=== PATIENT | male | born 1965 | race Two or more races ===

== ENCOUNTER 2024-09-22 16:16 | Inpatient (IN) | payer MEDICAID ==
[~2024-09-22] VITALS: Ht 177.8 cm; Wt 61.0 kg
[~2024-09-22 16:16] MED LIST: HUM10VIA6 SQ; INSU100V64 SQ; LANTUS SQ
[2024-09-22 16:40] LABS: BASOPHILS % (AUTO) 0.7 % (0-1); EOSINOPHILS # (AUTO) 0.1 X10'3 (0-0.9); HEMATOCRIT 39.9 % (42.0-52.0); HEMOGLOBIN 13.1 g/dl (14.0-17.9); LYMPHOCYTES # (AUTO) 0.6 X10'3 (1.1-4.8); LYMPHOCYTES % (AUTO) 9.1 % (21-51); MEAN CORPUSCULAR HEMOGLOBIN 28.7 PG (27.0-31.0); MEAN CORPUSCULAR HGB CONC 32.9 g/dL (33.0-36.5); MEAN CORPUSCULAR VOLUME 87.4 FL (78-98); MEAN PLATELET VOLUME 7.9 FL (7.4-10.4); MONOCYTES # (AUTO) 0.5 X10'3 (0-0.9); MONOCYTES % (AUTO) 7.8 % (2-12); NEUTROPHILS # (AUTO) 5.2 X10'3 (1.8-7.7); NEUTROPHILS % (AUTO) 81.4 % (42-75); PLATELET COUNT 76 X10'3 (140-440); RED BLOOD COUNT 4.57 X10'6 (4.70-6.10); RED CELL DISTRIBUTION WIDTH 17.2 % (11.5-14.5); WHITE BLOOD COUNT 6.4 X10'3 (4.5-11.0)
[2024-09-22 16:57] LABS: ALANINE AMINOTRANSFERASE 37 U/L (12-78); ALBUMIN 3.4 G/DL (3.4-5.0); ALBUMIN/GLOBULIN RATIO 0.8 (1.1-1.5); ALKALINE PHOSPHATASE 133 IU/L (46-116); ANION GAP 11 (8-16); ASPARTATE AMINO TRANSFERASE 26 U/L (10-37); BILIRUBIN,TOTAL 0.6 MG/DL (0.1-1.0); BLOOD UREA NITROGEN 34 MG/DL (7-18); BUN/CREATININE RATIO 6.7 (10.0-20.0); CALCIUM 8.7 MG/DL (8.5-10.1); CHLORIDE 94 MMOL/L (99-107); CREATININE 5.11 MG/DL (0.60-1.10); GLUCOSE 173 MG/DL (70-104); MAGNESIUM 2.2 MG/DL (1.5-2.4); PHOSPHORUS 3.4 MG/DL (2.3-4.5); POTASSIUM 3.4 MMOL/L (3.5-5.1); SODIUM 137 MMOL/L (135-145); TOTAL CARBON DIOXIDE 31.6 MMOL/L (24-32); TOTAL PROTEIN 7.7 G/DL (6.4-8.2); eCRCL 15 ML/MIN; eGFR 12 ML/MIN
[2024-09-22] MEDS: labetalol 20mg/4ml (5mg/ml) syringe IV ONE (18:10)
[2024-09-22 19:59] LABS: ETHANOL < 10 MG/DL (<10)
[2024-09-22 20:09] LABS: ABG BASE EXCESS 4.3 mmol/L (-2.0-3.0); ABG HCO3 27.8 mmol/L (21.0-28.0); ABG OXYGEN SATURATION 92.4 % (94.0-98.0); ABG PCO2 (T) 36.9 mmHg (35.0-48.0); ABG PH (T) 7.494 (7.350-7.450); ALLEN'S TEST POSITIVE; FCOHb 0.4 % (0.5-1.5); FHHb 7.5 % (0.0-5.0); FLOW 3 L/min; FMetHb 0.3 % (0.0-1.5); FO2Hb 91.8 % (94.0-98.0); MODE NASAL CANNULA; PATIENT TEMPERATURE 36.5; TOTAL HEMOGLOBIN 13.4 G/dl (13.5-17.5)
[2024-09-22] MEDS ORDERED: HYDR50TA46 PO (20:49)
[2024-09-22] MEDS ORDERED: METO-395 PO (20:49)
[2024-09-22] MEDS ORDERED: ESCI5TAB17 PO (20:49)
[2024-09-22] MEDS ORDERED: PHEN32.46 PO (20:49)
[2024-09-22] MEDS ORDERED: ATOR40TA72 PO (20:49)
[2024-09-22] MEDS ORDERED: NIFE90TA70 PO (20:49)
[2024-09-22] MEDS ORDERED: PHO667C PO (20:49)
[2024-09-22] MEDS ORDERED: CLON-330 PO (20:49)
[2024-09-22] MEDS: CefTRIAXone 2gm/D5W 50ml BAG 50 ML IV ONE (21:12)
[2024-09-22] MEDS ORDERED: potassium Cl 20 mEq SR tablet PO PRN ×2 (22:25)
[2024-09-22] MEDS ORDERED: magnesium Cl slow-release 64mg tablet PO PRN (22:25)
[2024-09-22] MEDS ORDERED: HYDROcodone/acetaminophen 5mg/325mg tablet PO PRN (22:25)
[2024-09-22] MEDS ORDERED: magnesium sulf-water 2g/50mL 50 ML IV PRN (22:25)
[2024-09-22] MEDS ORDERED: magnesium sulf-water 4G/100mL 100 ML IV PRN (22:25)
[2024-09-22] MEDS ORDERED: potassium Cl 40MEQ/1/2NS 520ml 520 ML IV PRN (22:25)
[2024-09-22] MEDS ORDERED: acetaminophen 325mg tablet PO PRN (22:25)
[2024-09-22] MEDS ORDERED: ipratropium/albuterol 3ml nebule NEB PRN (22:30)
[2024-09-22 22:59] LABS: HEMOGLOBIN A1C > 12.0 % (4.5-6.2)
[2024-09-22 23:25] LABS: PRO BRAIN NATRIURETIC PEPTIDE > 30000 PG/ML (0-125)
[2024-09-22 23:43] LABS: APTT 29 SECONDS (22-32); INR 1.1 INR
[2024-09-23] VITALS (18 sets, daily range): BP systolic 133–178; BP diastolic 70–88; PULSE 50–79; RESP 12–20; TEMP 97.3–98.1; O2SAT 94–100
[2024-09-23] MEDS: methylPREDNISolone sod succ/PF 40mg inj. IV SCH (00:57)
[2024-09-23] MEDS ORDERED: dextrose 50%-water 50ml dispensing syringe IV PRN ×2 (01:35)
[2024-09-23] MEDS ORDERED: glucagon, human recombinant 1mg kit SUBCUT PRN (01:35)
[2024-09-23] MEDS ORDERED: DEXTROSE 15 GM of carb/4 tabs (each vial/BOTTLE has 4 tablets) PO PRN ×2 (01:35)
[2024-09-23 02:11] LABS: BASOPHILS % (AUTO) 0.3 % (0-1); EOSINOPHILS % (AUTO) 0.1 % (0-6); HEMATOCRIT 41.8 % (42.0-52.0); HEMOGLOBIN 13.5 g/dl (14.0-17.9); LYMPHOCYTES # (AUTO) 0.5 X10'3 (1.1-4.8); LYMPHOCYTES % (AUTO) 6.4 % (21-51); MEAN CORPUSCULAR HEMOGLOBIN 28.6 PG (27.0-31.0); MEAN CORPUSCULAR HGB CONC 32.4 g/dL (33.0-36.5); MEAN CORPUSCULAR VOLUME 88.5 FL (78-98); MONOCYTES # (AUTO) 0.8 X10'3 (0-0.9); MONOCYTES % (AUTO) 9.7 % (2-12); NEUTROPHILS # (AUTO) 7.1 X10'3 (1.8-7.7); NEUTROPHILS % (AUTO) 83.5 % (42-75); PLATELET COUNT 73 X10'3 (140-440); RED BLOOD COUNT 4.72 X10'6 (4.70-6.10); RED CELL DISTRIBUTION WIDTH 17.3 % (11.5-14.5); WHITE BLOOD COUNT 8.5 X10'3 (4.5-11.0)
[2024-09-23 02:33] LABS: ALANINE AMINOTRANSFERASE 37 U/L (12-78); ALBUMIN 3.3 G/DL (3.4-5.0); ALBUMIN/GLOBULIN RATIO 0.7 (1.1-1.5); ALKALINE PHOSPHATASE 126 IU/L (46-116); ANION GAP 15 (8-16); ASPARTATE AMINO TRANSFERASE 29 U/L (10-37); BILIRUBIN,TOTAL 0.6 MG/DL (0.1-1.0); BLOOD UREA NITROGEN 43 MG/DL (7-18); BUN/CREATININE RATIO 6.1 (10.0-20.0); CALCIUM 8.5 MG/DL (8.5-10.1); CHLORIDE 91 MMOL/L (99-107); CREATININE 7.06 MG/DL (0.60-1.10); GLUCOSE 327 MG/DL (70-104); MAGNESIUM 2.3 MG/DL (1.5-2.4); PHOSPHORUS 6.3 MG/DL (2.3-4.5); POTASSIUM 4.5 MMOL/L (3.5-5.1); SODIUM 135 MMOL/L (135-145); TOTAL CARBON DIOXIDE 28.8 MMOL/L (24-32); TOTAL PROTEIN 7.8 G/DL (6.4-8.2); eCRCL 11 ML/MIN; eGFR 8 ML/MIN
[2024-09-23] MEDS: heparin, porcine 5000 units/ml vial SQ SCH (08:00)
[2024-09-23] MEDS: CefTRIAXone/D5W-Rocephin 1gm 50 ML IV SCH (08:00)
[2024-09-23] MEDS: K and/or MAG REPLACEMENT MC SCH (08:00)
[2024-09-23] MEDS: NIFEdipine XL 30mg tablet PO SCH (08:00)
[2024-09-23] MEDS: HYDROcodone/acetaminophen 10/325mg tab PO PRN (08:13)
[2024-09-23] MEDS: mag hydrox/Alum hydrox/simeth 30ml oral suspension PO PRN (08:17)
[2024-09-23] MEDS: albuterol 2.5 MG/3 ML nebule NEB PRN (08:58)
[2024-09-23] MEDS: INSULIN LISPRO 100 UNIT/ML INSULN.PEN MULTI-DOSE SQ SCH ×2 (09:00→10:40)
[2024-09-23] MEDS ORDERED: HYDROmorphone inj. 0.5 MG/0.5 ML DISP.SYRIN IV PRN (14:35)
[2024-09-23] MEDS: atorvastatin 20mg tablet PO SCH (15:15)
[2024-09-23] MEDS: ESCITALOPRAM 10 mg tablet 10 MG TABLET PO SCH (15:15)
[2024-09-23] MEDS: metoprolol succinate 25mg (24-HOUR) SR. Tablet PO SCH (15:15)
[2024-09-23] MEDS: azithromycin/NS 500mg/250ml 250 ML IV SCH (15:15)
[2024-09-23] MEDS: ondansetron/PF 4mg/2ml inj IV PRN (16:02)
[2024-09-23] MEDS: loperamide 2mg capsule PO PRN (17:13)
[2024-09-23] MEDS: cloNIDine 0.1 mg tablet PO SCH (20:54)
[2024-09-23] MEDS: hydrALAZINE 25 MG tablet PO SCH (20:55)
[2024-09-23] MEDS: insulin glargine (Lantus) pen - multi-dose SQ SCH (21:11)
[2024-09-24] VITALS (17 sets, daily range): BP systolic 94–157; BP diastolic 54–85; PULSE 56–84; RESP 13–18; TEMP 97.3–97.9; O2SAT 93–100
[2024-09-24 06:40] LABS: ALANINE AMINOTRANSFERASE 29 U/L (12-78); ALBUMIN/GLOBULIN RATIO 0.6 (1.1-1.5); ALKALINE PHOSPHATASE 114 IU/L (46-116); ANION GAP 13 (8-16); ASPARTATE AMINO TRANSFERASE 18 U/L (10-37); BILIRUBIN,TOTAL 0.5 MG/DL (0.1-1.0); BLOOD UREA NITROGEN 46 MG/DL (7-18); BUN/CREATININE RATIO 7.7 (10.0-20.0); CALCIUM 9.3 MG/DL (8.5-10.1); CHLORIDE 100 MMOL/L (99-107); CREATININE 5.98 MG/DL (0.60-1.10); GLUCOSE 260 MG/DL (70-104); MAGNESIUM 2.8 MG/DL (1.5-2.4); PHOSPHORUS 6.4 MG/DL (2.3-4.5); POTASSIUM 5.6 MMOL/L (3.5-5.1); SODIUM 140 MMOL/L (135-145); TOTAL CARBON DIOXIDE 26.9 MMOL/L (24-32); eCRCL 12 ML/MIN; eGFR 10 ML/MIN
[2024-09-24 06:46] LABS: BASOPHILS % (AUTO) 0.1 % (0-1); EOSINOPHILS % (AUTO) 0 % (0-6); HEMATOCRIT 46.5 % (42.0-52.0); HEMOGLOBIN 15.3 g/dl (14.0-17.9); LYMPHOCYTES # (AUTO) 0.5 X10'3 (1.1-4.8); LYMPHOCYTES % (AUTO) 5.7 % (21-51); MEAN CORPUSCULAR HEMOGLOBIN 29.1 PG (27.0-31.0); MEAN CORPUSCULAR HGB CONC 32.9 g/dL (33.0-36.5); MEAN CORPUSCULAR VOLUME 88.4 FL (78-98); MEAN PLATELET VOLUME 8.7 FL (7.4-10.4); MONOCYTES # (AUTO) 0.3 X10'3 (0-0.9); MONOCYTES % (AUTO) 3.8 % (2-12); NEUTROPHILS # (AUTO) 7.7 X10'3 (1.8-7.7); NEUTROPHILS % (AUTO) 90.4 % (42-75); PLATELET COUNT 102 X10'3 (140-440); RED BLOOD COUNT 5.26 X10'6 (4.70-6.10); RED CELL DISTRIBUTION WIDTH 17.5 % (11.5-14.5); WHITE BLOOD COUNT 8.6 X10'3 (4.5-11.0)
[2024-09-24] MEDS ORDERED: normal saline 1000ml 100 ML IV PRN (08:00)
[2024-09-24] MEDS: EPOETIN ALFA-EPBX 20,000 UNIT/ML 1 ML MDV IV ONE (08:00)
[2024-09-24] MEDS: lactobacillus rhamnosus 10,000 MMU CELLS/CAPSULE PO SCH (08:13)
[2024-09-24 09:13] LABS: HBSAG SCREEN Negative (Negative); HEP B SURF AB Reactive (.)
[2024-09-24] MEDS: acetaminophen 325mg tablet PO PRN (17:59)
[2024-09-24] MEDS: NUT.TX.IMP.RENAL FXN,LAC-REDUC (Nepro) 237 ML VANILLA PO SCH (18:00)
[2024-09-24] MEDS: HYDROmorphone/PF 0.2 MG/ML SYRINGE IV PRN (20:05)
[2024-09-24] MEDS: diphenhydrAMINE 25mg capsule PO PRN (22:56)
[2024-09-24] MEDS: HYDROcodone/acetaminophen 5mg/325mg tablet PO PRN (23:05)
[2024-09-25] VITALS (7 sets, daily range): BP systolic 101–123; BP diastolic 60–75; PULSE 62–76; RESP 14–16; TEMP 97.3–97.7; O2SAT 90–94
[2024-09-25 06:33] LABS: BASOPHILS % (AUTO) 0.1 % (0-1); EOSINOPHILS % (AUTO) 0 % (0-6); HEMATOCRIT 43.6 % (42.0-52.0); HEMOGLOBIN 14.3 g/dl (14.0-17.9); LYMPHOCYTES # (AUTO) 0.6 X10'3 (1.1-4.8); LYMPHOCYTES % (AUTO) 7.5 % (21-51); MEAN CORPUSCULAR HEMOGLOBIN 28.9 PG (27.0-31.0); MEAN CORPUSCULAR HGB CONC 32.9 g/dL (33.0-36.5); MEAN CORPUSCULAR VOLUME 87.8 FL (78-98); MEAN PLATELET VOLUME 8.1 FL (7.4-10.4); MONOCYTES # (AUTO) 0.5 X10'3 (0-0.9); MONOCYTES % (AUTO) 5.5 % (2-12); NEUTROPHILS # (AUTO) 7.5 X10'3 (1.8-7.7); NEUTROPHILS % (AUTO) 86.9 % (42-75); PLATELET COUNT 122 X10'3 (140-440); RED BLOOD COUNT 4.97 X10'6 (4.70-6.10); WHITE BLOOD COUNT 8.7 X10'3 (4.5-11.0)
[2024-09-25 06:58] LABS: ALANINE AMINOTRANSFERASE 20 U/L (12-78); ALBUMIN 2.8 G/DL (3.4-5.0); ALBUMIN/GLOBULIN RATIO 0.6 (1.1-1.5); ALKALINE PHOSPHATASE 112 IU/L (46-116); ANION GAP 12 (8-16); ASPARTATE AMINO TRANSFERASE 16 U/L (10-37); BILIRUBIN,TOTAL 0.4 MG/DL (0.1-1.0); BLOOD UREA NITROGEN 46 MG/DL (7-18); BUN/CREATININE RATIO 9.2 (10.0-20.0); CALCIUM 8.7 MG/DL (8.5-10.1); CHLORIDE 95 MMOL/L (99-107); CREATININE 4.98 MG/DL (0.60-1.10); GLUCOSE 392 MG/DL (70-104); MAGNESIUM 2.5 MG/DL (1.5-2.4); PHOSPHORUS 5.6 MG/DL (2.3-4.5); POTASSIUM 4.8 MMOL/L (3.5-5.1); SODIUM 135 MMOL/L (135-145); TOTAL CARBON DIOXIDE 28.3 MMOL/L (24-32); TOTAL PROTEIN 7.2 G/DL (6.4-8.2); eCRCL 14 ML/MIN; eGFR 12 ML/MIN
[2024-09-25] MEDS ORDERED: normal saline 1000ml 100 ML IV PRN (08:00)
[2024-09-25] MEDS ORDERED: ESCI5TAB17 PO (10:36)
[2024-09-25] MEDS ORDERED: CEFD300C3 PO (10:36)
== END 2024-09-25 14:31 | disposition home or self-care (01) | DRG 425 ==
LOC: ER 16:17 → ED HOLD 21:03 → PCU 3S 09-23 04:30
PROVIDERS: ADMIT Internal Medicine; ATTEND Internal Medicine
PROC: 5A1D70Z Performance of Urinary Filtration, Intermittent, Less than 6 Hours Per Day (ICD-10-PCS; principal; 2024-09-23)
PROC: 5A1D70Z Performance of Urinary Filtration, Intermittent, Less than 6 Hours Per Day (ICD-10-PCS; 2024-09-24)
DX: E87.70 Fluid overload, unspecified (principal); J96.01 Acute respiratory failure with hypoxia; G93.41 Metabolic encephalopathy; I67.4 Hypertensive encephalopathy; D69.6 Thrombocytopenia, unspecified; E87.4 Mixed disorder of acid-base balance; J18.9 Pneumonia, unspecified organism; E83.39 Other disorders of phosphorus metabolism; Z20.822 Contact with and (suspected) exposure to COVID-19; D63.1 Anemia in chronic kidney disease; J21.9 Acute bronchiolitis, unspecified; E87.1 Hypo-osmolality and hyponatremia; I16.1 Hypertensive emergency; E87.5 Hyperkalemia; I12.0 Hypertensive chronic kidney disease with stage 5 chronic kidney disease or end stage renal disease; N18.6 End stage renal disease; E11.22 Type 2 diabetes mellitus with diabetic chronic kidney disease; F31.9 Bipolar disorder, unspecified; F41.9 Anxiety disorder, unspecified; G89.29 Other chronic pain; M54.9 Dorsalgia, unspecified; F17.210 Nicotine dependence, cigarettes, uncomplicated; E11.65 Type 2 diabetes mellitus with hyperglycemia; I95.9 Hypotension, unspecified; Z90.49 Acquired absence of other specified parts of digestive tract; Z99.2 Dependence on renal dialysis; Z91.158 Patient's noncompliance with renal dialysis for other reason
CPT/HCPCS: 36415; 36600; 70450; 71045; 71250; 74176; 80053; 80320; 82803; 82948; 83036; 83605; 83735; 83880; 84100; 84145; 85018; 85025; 85610; 85730; 86706; 87040; 87081; 87340; 87502; 87503; 87811; 93005; 94640; 94760; 96365; 96375; 97110; 97116; 97162; 97530; 99285; A4615; A6212; A6449; E1594; G0257; G0378; J0456; J0696; J1171; J1644; J1815; J2405; J2919; J3490; J7030; J7040; Q0163

== ENCOUNTER 2024-11-27 15:07 | Emergency (ER) | payer MEDICAID ==
[~2024-11-27] VITALS: Ht 177.8 cm; Wt 69.5 kg
[~2024-11-27 15:07] MED LIST changes: +ATOR40TA72 PO; +CLON-330 PO; +ESCI5TAB17 PO; +HYDR50TA46 PO; +METO-395 PO; +NIFE90TA70 PO; +PHEN32.46 PO; +PHO667C PO
--- NOTE | 2024-11-27 15:26 | Physician Documentation ---
History of Present Illness ~ Chief Complaint: Knee Pain Stated Complaint: FALL HURT RIGHT KNEE Time Seen by MD: 17:45 Primary Medical Doctor: QUENTIN AZEVEDO 59-year-old male presents to the ED with a complaint of right knee pain. [place] and injured his right knee. States unable to bear weight and has pain with range of motion at this time. This is though his knee has not swollen. Patient additionally reports mild right posterior shoulder pain and left knee pain. Denies having head strikes Day of Onset: Nov 27, 2024 Tetanus witin 5 years: Yes Medication Reconciliation Allergies: Coded Allergies: No Known Allergies (Unverified , 09/22/24) Scheduled Atorvastatin Calcium (Atorvastatin Calcium), 1 TAB PO DAILY, (Reported) Clonidine HCl (Clonidine HCl), 1 TAB PO BID, (Reported) Escitalopram Oxalate (Escitalopram Oxalate), 10 MG PO DAILY Hum Insulin Nph/Reg Insulin Hm (Humulin 70-30 Vial), 20 UNIT SQ HS, (Reported) Hydralazine HCl (Hydralazine HCl), 2 TAB PO BID, (Reported) Insulin Glargine,Hum.rec.anlog* (Lantus*), 20 UNITS SQ BID, (Reported) Insulin Regular, Human* (Humulin R 3 Ml *), 15 UNITS SQ BID Metoprolol Succinate (Metoprolol Succinate), 1 TAB PO DAILY, (Reported) Naloxone HCl (Narcan), 1 SPRAYS BOTHNARES ONCE Nifedipine (Nifedipine ER), 1 TAB PO DAILY, (Reported) Phenobarbital (Phenobarbital), 1 TAB PO QAM, (Reported) Scheduled PRN Hydrocodone Bit/Acetaminophen 5/325 MG (Lakeside 5/325 MG), 1 TAB PO Q6H PRN for pain Miscellaneous Medications Calcium Acetate (Calcium Acetate), 1 CAP PO, (Reported) Past Medical History Past Medical History: Seizures, Diabetes, Chronic Back Pain, Anxiety, Bipolar, Depression Past Surgical History: cholecystectomy Patient History: FH: diabetes mellitus FATHER Alcohol Use: Occasionally Drug Use: none Review of Systems ROS Bilateral knee pain and right shoulder pain as stated above in the HPI, otherwise all systems are reviewed and negative. Physical Exam Vital Signs: Temperature: 97.1, Source: Temporal, Heart Rate: 52, Respiratory Rate: 15, BP: 156/66, Pulse Oximetry: 99, Weight: 69.550 Physical Exam VITALS: Reviewed and as above. GENERAL: Alert, nontoxic appearing, no apparent distress. HEENT: Atraumatic RESPIRATORY: No increased work of breathing, no respiratory distress, speaking in full clear sentences MUSCULOSKELETAL: Anterior aspects of bilateral knees are tender to palpation with right being more tender than left, no swelling, no deformity, no patellar ballottement, joint lines bilaterally are nontender to palpation. Mild tenderness to palpation of right posterior shoulder without deformity. Pedal pulse and sensation intact distal to injury. SKIN: Area of faint ecchymosis to posterior right knee otherwise no ecchymosis to left knee, bilateral shoulders, or bilateral hands Progress Results/Orders Results/Orders Completed Orders - DIOR COLE [employer] APPRENTICE Hydrocodone/Apap 10/325 (Lakeside 10/325mg (11/27/24 18:30) Clonidine Tablet (Catapres Tablet) (11/27/24 18:55) Medications Received in ER Medications (Trade) Dose Ordered Sig/Juan C Route PRN Reason Start Time Stop Time Status Last Admin Dose Admin (Lakeside 10/325mg tab) 1 tab ONCE ONCE PO 11/27/24 18:30 11/27/24 18:31 DC 11/27/24 18:38 1 TAB (Catapres tablet) 0.1 mg ONCE ONCE PO 11/27/24 18:55 11/27/24 18:58 DC 11/27/24 19:17 0.1 MG Vital Signs 11/27/24 11/27/24 11/27/24 11/27/24 15:21 16:51 17:39 17:53 Temp 97.1 98.2 98.2 Pulse 52 85 61 Resp 15 16 16 18 B/P (MAP) 156/66 157/79 (105) 187/85 (119) Pulse Ox 99 99 100 11/27/24 11/27/24 11/27/24 18:39 19:44 20:00 Temp 98.2 98.2 98.2 Pulse 65 64 Resp 18 B/P (MAP) 183/87 (119) Pulse Ox 100 100 O2 Flow Rate 0 0 EKG/XRAY/CT/US/VASC/MRI Bone/Soft Tissue X-Ray (Ext.) : Additional Comment DI KNEE, COMP 4 VW MIN, INDICATION: KNEE PAIN TECHNICAL DATA: Frontal , oblique and lateral views were obtained of the right knee. COMPARISON: None FINDINGS: No fracture is identified. Medial, lateral and patellofemoral compartment joint spaces are maintained. Alignment is anatomic. Soft tissues are within normal limits. No joint effusion is demonstrated. IMPRESSION: No acute fracture or dislocation of the right knee. Electronically Signed by:MITESH MONGE MD Date & Time: 11/27/241601 Dictated by: MITESH MONGE MD Dictation date and time: 11/27/24 1602 I have reviewed and agree with the radiology report. I have reviewed and interpreted the imaging as: No fracture or dislocation Medical Decision Making Findings This 59-year-old male presented with pain to his bilateral knees worse in the right knee after a mechanical ground level trip and fall striking both knees, physical exam did not demonstrate evidence of significant injury including no swelling, ecchymosis, erythema or deformity and x-ray did not demonstrate evidence of fracture or dislocation. Limb was neurovascularly intact distal to the injury. I suspect pain is from soft tissue contusion. Patient was offered admission for pain management though declined and with shared decision-making he will be discharged home. Patient's pain was managed in the emergency department he was able to ambulate utilizing a walker, patient additionally ambulates with a walker at home and has a wheelchair he is able to use if needed. Patient reports he has good follow up with primary care provider who he will schedule an appointment with in the next 2-3 days. I discussed the plan with the patient who agrees and careful return to care and home care instructions were provided which he verbalized understanding of. Patient is otherwise well-appearing and remainder of physical exam benign. Patient was found to be quite hypertensive during ED visit the patient reports no symptoms related to hypertension, patient reports he did not take his daily hypertension medicine and I believe combination of his seems dose of antihypertensive and pain his responsible for this episode of significant hyper tension. Patient received his normal dose of hypertensive medication in the department with noticeable response prior to discharge. I have discussed with the patient the risks of addiction and overdose associated with use of opioids, including the increased risk of addiction to an opioid for an individual who is suffering from both mental and substance abuse disorders. I have discussed with the patient the danger of taking an opioid with a benzodiazepine, alcohol, or another central nervous system depressant. Knee Diff Dx:Considerations: Include: Abrasion, Contusion, DJD, Fracture-femur, Fracture-fibula, Fracture-patella, Fracture-tibia, Gout, Hematoma, Laceration, Meniscus injury, Neurovascular injury, Sprain Additional Comment I additionally considered hypertensive emergency Departure Disposition: 01 HOME / SELF CARE / HOMELESS Impression: Primary Impression: Knee pain Qualified Codes: M25.561 - Pain in right knee Condition: Improved Discharge Instructions: Acute Knee Pain, Adult, RICE Therapy for Routine Care of Injuries, [id number] Additional Instructions: Please take the medications as prescribed. Please use the walker to help rest your knee. Please follow up with your primary care provider in the next few days for re-evaluation and further pain management. Please return to the emergency department for any new or worsening concerning symptoms. You may use [id number] ibuprofen and or Tylenol as needed for pain as directed by the [id number]-[id number] packaging. For breakthrough pain you may use the prescribed Lakeside, be aware that the Lakeside also contains the same active ingredient as Tylenol, so do not take more than the recommended amount of Tylenol as directed on the [id number]-ipjzeic packaging. You have been prescribed an opioid medication, there are risks of addiction and overdose associated with the use of opioids. The risk of addiction to an opioid for increases for those suffering both from mental health and substance use disorders. The use of an opioid while taking other central nervous system depressants including but not limited to benzodiazepines or alcohol, or other opioids increases the risk of serious side effects that can include overdose or respiratory depression that can lead to serious injury or . I have also prescribed you Narcan which is a medication that can help reverse opioid overdose. Referrals: NO PRIMARY CARE PROVIDER (PCP) Prescriptions Naloxone HCl (Narcan) 4 Mg/Actuation [place] 1 SPRAYS BOTHNARES ONCE for 1 Day, #1 EA 0 Refills Prov: DIOR COLE 11/27/24 Hydrocodone Bit/Acetaminophen 5/325 MG (Lakeside 5/325 MG) 5 Mg/325 Mg Tablet 1 TAB PO Q6H PRN for pain for 3 Days, #12 TAB Prov: DIOR COLE 11/27/24 Education Educated: Patient Educated regarding: diagnosis, treatment, prognosis Signature Scribe Signature: No scribe Attestation: The note accurately reflects work and decisions made by me.EMANUEL Palencia 11/27/24 20:17 GABO JESUS NP Nov 27, 2024 15:26 DIOR COLE Nov 27, 2024 18:35
--- NOTE | 2024-11-27 16:05 | RADIOLOGY REPORT ---
DI KNEE, COMP 4 VW MIN, INDICATION: KNEE PAIN TECHNICAL DATA: Frontal , oblique and lateral views were obtained of the right knee. COMPARISON: None FINDINGS: No fracture is identified. Medial, lateral and patellofemoral compartment joint spaces are maintained . Alignment is anatomic. Soft tissues are within normal limits. No joint effusion is demonstrated. IMPRESSION: No acute fracture or dislocation of the right knee.
[2024-11-27] MEDS: HYDROcodone/acetaminophen 10/325mg tab PO ONE (18:38)
[2024-11-27 18:39] VITALS: RESP 18
[2024-11-27] MEDS: cloNIDine 0.1 mg tablet PO ONE (19:17)
[2024-11-27] MEDS ORDERED: NALO4SPR BOTHNARES (19:37)
[2024-11-27] MEDS ORDERED: HYDR-3965 PO (19:37)
[2024-11-27 19:44] VITALS: BP 183/87; PULSE 64; O2SAT 100
[2024-11-27 20:00] VITALS: TEMP 98.2
== END 2024-11-27 20:01 | disposition home or self-care (01) ==
LOC: ER 15:08
DX: M25.561 Pain in right knee (principal); M25.562 Pain in left knee; M25.511 Pain in right shoulder; E11.9 Type 2 diabetes mellitus without complications; F31.9 Bipolar disorder, unspecified; Z90.49 Acquired absence of other specified parts of digestive tract; F41.9 Anxiety disorder, unspecified; W01.0XXA Fall on same level from slipping, tripping and stumbling without subsequent striking against object, initial encounter; Y93.89 Activity, other specified; Y92.89 Other specified places as the place of occurrence of the external cause; Y99.8 Other external cause status
CPT/HCPCS: 73564; 99285